=== PATIENT | male | born 1960 | race Two or more races ===

== ENCOUNTER 2019-08-15 18:55 | Emergency (ER) | payer OTHER ==
[~2019-08-15] VITALS: Ht 172.7 cm; Wt 65.8 kg
[~2019-08-15 18:55] MED LIST: "\\\"BP MED\\\""; LORA-259 PO; MIRT30TA PO
--- NOTE | 2019-08-15 19:25 | NUR ---
PT AAOX4. AMBULATORY WIH STEADY GAIT. C/O BEING DEPRESSED TODAY AND RELAPSED ON BIPOLAR DISORDER. States had 1 beer today. -SI, -HI. PLACED ON MONITOR AND PULSE OX. VSS. NO ACUTE DISTRESS NOTED. URINE COLLECTED AND SENT TO LAB. AWAITING DEBT MANAGEMENT COUNSELOR FOR LABS. WILL CONTINUE TO MONITOR.
[2019-08-15 19:46] LABS: APPEARANCE,URINE Clear (CLEAR); BILIRUBIN,URINE Negative (NEGATIVE); BLOOD, URINE Negative Ery/uL (NEGATIVE); COLOR,URINE Yellow (YELLOW); KETONES,URINE Negative (NEGATIVE); LEUKOCYTE ESTERASE ,URINE Trace (NEGATIVE); NITRITE, URINE Negative (NEGATIVE); PROTEIN,URINE Negative (NEGATIVE); UGLUCOSE Negative (NEGATIVE); UROBILINOGEN,URINE 0.2 EU/dL (0.2)
[2019-08-15 19:50] LABS: HEMOGLOBIN 13.7 g/dL (13.5-17.5); RED BLOOD CELL COUNT(AUTO) 4.17 MIL/uL (4.5-6.0); WHITE BLOOD COUNT (AUTO) 8.7 K/uL (4.3-11.0)
[2019-08-15 19:51] LABS: BASOPHILS # (AUTO) 0.1 /CMM (0.0-0.2); BASOPHILS % (AUTO) 1.5 % (0.0-2.0); EOSINOPHILS % (AUTO) 2.9 % (0.0-6.0); HEMATOCRIT 41 % (39-51); LYMPHOCYTES # (AUTO) 1.3 /CMM (0.8-4.8); MEAN CORPUSCULAR HGB CONC 34 g/dl (31.0-36.0); MEAN CORPUSCULAR VOLUME 98 fL (80-96); MONOCYTES # (AUTO) 0.5 /CMM (0.1-1.30); MONOCYTES % (AUTO) 6.3 % (2.0-12.0); NEUTROPHILS # (AUTO) 6.4 /CMM (1.8-8.9); NEUTROPHILS % (AUTO) 74.3 % (43.0-81.0); PLATELET COUNT (AUTO) 182 /CMM (150-450)
[2019-08-15 19:53] LABS: BACTERIA,URINE Few /HPF (None Seen); RBC,URINE NONE SEEN /HPF (0-2); SQUAMOUS EPITHELIAL CELL,UR Few /HPF (None Seen)
[2019-08-15 20:02] LABS: CALCIUM, SERUM 9.6 mg/dL (8.5-10.1); CARBON DIOXIDE 31 mmol/L (21-32); CHLORIDE 102 mmol/L (98-107); CREATININE 1.6 mg/dL (0.6-1.3); GLUCOSE 96 mg/dL (74-106); POTASSIUM 5.5 mmol/L (3.5-5.1); SODIUM SERUM 137 mmol/L (136-145); UREA NITROGEN, BLOOD 25 mg/dL (7-18)
[2019-08-15 20:11] LABS: ALANINE AMINOTRANSFERASE 67 U/L (12-78); ALBUMIN 3.8 g/dL (3.4-5.0); ALKALINE PHOSPHATASE 58 U/L (46-116); ASPARTATE AMINOTRANSFERASE 48 U/L (15-37); BILIRUBIN,DIRECT 0.1 mg/dL (0.0-0.2); BILIRUBIN,TOTAL 0.4 mg/dL (0.2-1.0); TOTAL PROTEIN, SERUM 7.1 g/dL (6.4-8.2)
[2019-08-15 20:12] LABS: SALICYLATE 1.9 mg/dL (2.8-20.0)
[2019-08-15 20:13] LABS: ACETAMINOPHEN < 2 ug/ml (10-30); ALCOHOL, BLOOD < 3 mg/dL (0-0)
[2019-08-15] MEDS ORDERED: IV NS 0.9% 1,000 ML BAG IV ONE (20:30)
--- NOTE | 2019-08-15 20:32 | NUR ---
EMT AT BEDSIDE FOR EKG
--- NOTE | 2019-08-15 21:02 | NUR ---
Patient is resting comfortably in bed. Easily aroused. VSS. Recieving Fluids.
[2019-08-15] MEDS ORDERED: SODIUM POLYSTYRENE SULFONATE 15 G/60 ML BOTTLE ONE ×2 (21:29→21:32)
[2019-08-15] MEDS ORDERED: SODIUM POLYSTYRENE SULFONATE 15 G/60 ML BOTTLE RC ONE ×2 (21:30→22:00)
[2019-08-15 23:05] LABS: CALCIUM, SERUM 8.6 mg/dL (8.5-10.1); CREATININE 1.5 mg/dL (0.6-1.3); POTASSIUM 4.2 mmol/L (3.5-5.1)
[2019-08-16] MEDS ORDERED: LORAZEPAM 1 MG TABLET PO ONE (00:30)
[2019-08-16] MEDS ORDERED: LORAZEPAM 1 MG TABLET ONE (00:32)
--- NOTE | 2019-08-16 00:40 | NUR ---
CLINICALS FAXED TO [facility] FOR VOLUNTARY ADMISSION.
--- NOTE | 2019-08-16 01:49 | NUR ---
SPOKE TO CRESENCIO FROM [facility] INTAKE PT ACCEPTED AT [facility] ACCEPTING MD: SANDIP PHONE # FOR REPORT PT WILL GO UNIT 1
--- NOTE | 2019-08-16 02:06 | NUR ---
[phone] ETA 45MIN.
--- NOTE | 2019-08-16 02:23 | NUR ---
UNIT 2 REPORT GIVEN TO EDIN COBIAN LONNY
[2019-08-16 02:27] VITALS: BP 127/81
--- NOTE | 2019-08-16 02:35 | NUR ---
REPORT GIVEN TO [facility] FOR LONNY
--- NOTE | 2019-08-16 02:35 | NUR ---
PT BEING TRASNSPORTED.
== END 2019-08-16 02:59 ==
LOC: ER 19:01
DX: R45.851 Suicidal ideations (principal); F31.9 Bipolar disorder, unspecified; N18.9 Chronic kidney disease, unspecified; E87.5 Hyperkalemia; Z60.2 Problems related to living alone; Z79.899 Other long term (current) drug therapy
CPT/HCPCS: 36415; 80048 ×2; 80076; 80305; 80307; 80329; 81001; 85025; 93005; 99285; G0480; J7030; 81000-TC

== ENCOUNTER 2020-01-20 21:09 | Emergency (ER) | payer OTHER ==
[~2020-01-20] VITALS: Ht 175.3 cm; Wt 63.5 kg
[2020-01-20] MEDS ORDERED: MAG HYDROX/AL HYDROX/SIMETH 30 ML UDC PO ONE (21:30)
[2020-01-20] MEDS ORDERED: LIDOCAINE VISCOUS 2% UD 15 ML UDC MM ONE (21:30)
--- NOTE | 2020-01-20 21:31 | NUR ---
PT AAOX4. BIBRA 878 FOR UNABLE TO SLEEP OR EAT X 2 WEEKS. PT STATES ABD PAIN TODAY AND FEELING NAUSEOUS. NO ACUTE DISTRESS NOTED. PA AT BEDSIDE FOR EVAL. AWAITING ORDERS.
[2020-01-20] MEDS ORDERED: LIDOCAINE VISCOUS 2% UD 15 ML UDC ONE (21:44)
[2020-01-20] MEDS ORDERED: ONDANSETRON HCL/PF 4 MG/2 ML VIAL ONE ×2 (21:44→23:46)
[2020-01-20] MEDS ORDERED: MAG HYDROX/AL HYDROX/SIMETH 30 ML UDC ONE (21:44)
[2020-01-20] MEDS ORDERED: MORPHINE SULFATE INJ 4 MG/ML DISP.SYRIN ONE (21:45)
[2020-01-20] MEDS ORDERED: ONDANSETRON HCL/PF 4 MG/2 ML VIAL IVP ONE (22:00)
[2020-01-20] MEDS ORDERED: IV NS 0.9% 1,000 ML BAG IV ONE (22:00)
[2020-01-20] MEDS ORDERED: MORPHINE SULFATE INJ 2 MG/ML DISP.SYRIN IV ONE (22:00)
[2020-01-20 22:07] LABS: BASOPHILS # (AUTO) 0.1 /CMM (0.0-0.2); BASOPHILS % (AUTO) 1.1 % (0.0-2.0); EOSINOPHILS % (AUTO) 0.2 % (0.0-6.0); HEMATOCRIT 40 % (39-51); HEMOGLOBIN 13.5 g/dL (13.5-17.5); LYMPHOCYTES # (AUTO) 0.7 /CMM (0.8-4.8); LYMPHOCYTES % (AUTO) 9.5 % (20.0-44.0); MEAN CORPUSCULAR HGB CONC 33 g/dl (31.0-36.0); MEAN CORPUSCULAR VOLUME 96 fL (80-96); MONOCYTES # (AUTO) 0.3 /CMM (0.1-1.30); MONOCYTES % (AUTO) 4.4 % (2.0-12.0); NEUTROPHILS # (AUTO) 5.9 /CMM (1.8-8.9); NEUTROPHILS % (AUTO) 84.8 % (43.0-81.0); PLATELET COUNT (AUTO) 266 /CMM (150-450); RED BLOOD CELL COUNT(AUTO) 4.19 MIL/uL (4.5-6.0)
--- NOTE | 2020-01-20 22:17 | NUR ---
US AT BEDSIDE
[2020-01-20 22:22] LABS: CALCIUM, SERUM 9.4 mg/dL (8.5-10.1); POTASSIUM 3.5 mmol/L (3.5-5.1)
[2020-01-20 22:24] LABS: SALICYLATE 2.9 mg/dL (2.8-20.0)
[2020-01-20 22:28] LABS: ALBUMIN 3.4 g/dL (3.4-5.0); BILIRUBIN,DIRECT 0.2 mg/dL (0.0-0.2); BILIRUBIN,TOTAL 0.6 mg/dL (0.2-1.0); TOTAL PROTEIN, SERUM 6.7 g/dL (6.4-8.2)
[2020-01-20] MEDS ORDERED: HYDROMORPHONE 1 MG/1 ML DISP.SYRIN IV ONE (22:30)
--- NOTE | 2020-01-20 22:31 | NUR ---
PA AT BEDSIDE SPEAKING TO PT
[2020-01-20] MEDS ORDERED: HYDROMORPHONE 1 MG/1 ML DISP.SYRIN ONE (22:33)
--- NOTE | 2020-01-20 22:40 | NUR ---
UNABLE TO URINATE/ PA AWARE.
--- NOTE | 2020-01-20 22:48 | NUR ---
URINE COLLECTED, SENT TO LAB
[2020-01-20] MEDS ORDERED: PANTOPRAZOLE 40 MG VIAL IV ONE (23:00)
[2020-01-20] MEDS ORDERED: PANTOPRAZOLE 40 MG VIAL ONE (23:01)
[2020-01-20 23:07] LABS: APPEARANCE,URINE CLEAR (CLEAR); BILIRUBIN,URINE NEGATIVE (NEGATIVE); BLOOD, URINE NEGATIVE Ery/uL (NEGATIVE); COLOR,URINE YELLOW (YELLOW); KETONES,URINE NEGATIVE (NEGATIVE); LEUKOCYTE ESTERASE ,URINE NEGATIVE (NEGATIVE); NITRITE, URINE NEGATIVE (NEGATIVE); PH,URINE 7.5 (5.0-8.0); PROTEIN,URINE NEGATIVE (NEGATIVE); UGLUCOSE NEGATIVE (NEGATIVE); UROBILINOGEN,URINE 0.2 EU/dL (0.2)
[2020-01-21] MEDS ORDERED: ONDANSETRON HCL/PF 4 MG/2 ML VIAL IV ONE
--- NOTE | 2020-01-21 00:13 | NUR ---
PT RESTING IN BED. STATED HE IS SEEING THINGS.
--- NOTE | 2020-01-21 00:59 | NUR ---
PT AMBULATED TO SINK.
[2020-01-21] MEDS ORDERED: CHLORDIAZEPOXIDE HCL 25 MG CAPSULE ONE (02:20)
[2020-01-21] MEDS ORDERED: CHLORDIAZEPOXIDE HCL 25 MG CAPSULE PO ONE (02:30)
--- NOTE | 2020-01-21 02:40 | NUR ---
IV removed. Catheter intact and site benign. Pressure and 4x4 applied to site. No bleeding noted. Patient discharged to home in stable condition. Written and verbal after care instructions given. Patient verbalizes understanding of instruction and RX. Pt ambualted with steady gait. vss.
[2020-01-21 03:08] VITALS: BP 121/71
== END 2020-01-21 03:09 | disposition home or self-care (01) ==
LOC: ER 21:11
DX: K29.20 Alcoholic gastritis without bleeding (principal); F10.10 Alcohol abuse, uncomplicated; F32.9 Major depressive disorder, single episode, unspecified; R45.851 Suicidal ideations; E86.0 Dehydration; Y90.8 Blood alcohol level of 240 mg/100 ml or more; Z60.2 Problems related to living alone; Z79.899 Other long term (current) drug therapy
CPT/HCPCS: 36415; 71045; 76705; 80048; 80076; 80305; 80307; 80329; 81001; 83690; 85025; 85730; 96361; 96374; 96375; 96376; 99285; C9113; G0480; J1170; J2270; J2405 ×2; J7030; 81000-TC

== ENCOUNTER 2021-01-20 23:20 | Emergency (ER) | payer OTHER ==
[~2021-01-20] VITALS: Ht 175.3 cm; Wt 77.1 kg
[~2021-01-20 23:20] MED LIST changes: +MIRT-119 PO; -MIRT30TA PO
[2021-01-20] MEDS ORDERED: ONDANSETRON HCL/PF 4 MG/2 ML VIAL IVP ONE (23:30)
--- NOTE | 2021-01-20 23:30 | NUR ---
DORA 37 FROM HIS [facility]S HOUSE FOR C/O R SIDED ABD PAIN AND NAUSEA AND VOMITING X 1 DAY. DENIED DIARRHEA. REPORTED LAST BM "WHILE AGO". PT ADMITTED ON DRINKING ALCOHOL. PT WAS PLACED IN BED 11 ER , ON MONITOR. VSS. WILL CONT TO MONITOR
[2021-01-20] MEDS ORDERED: ONDANSETRON HCL/PF 4 MG/2 ML VIAL ONE (23:31)
[2021-01-20 23:44] LABS: BASOPHILS # (AUTO) 0.2 K/uL (0.0-0.2); BASOPHILS % (AUTO) 1.1 % (0.0-2.0); HEMATOCRIT 46 % (39-51); HEMOGLOBIN 15.7 g/dL (13.5-17.5); LYMPHOCYTES # (AUTO) 0.9 K/uL (0.8-4.8); LYMPHOCYTES % (AUTO) 6.4 % (20.0-44.0); MEAN CORPUSCULAR HGB CONC 34 g/dl (31.0-36.0); MEAN CORPUSCULAR VOLUME 97 fL (80-96); MONOCYTES # (AUTO) 0.2 K/uL (0.1-1.30); MONOCYTES % (AUTO) 1.3 % (2.0-12.0); NEUTROPHILS # (AUTO) 12.4 K/uL (1.8-8.9); NEUTROPHILS % (AUTO) 91.2 % (43.0-81.0); PLATELET COUNT (AUTO) 319 K/uL (150-450); RED BLOOD CELL COUNT(AUTO) 4.79 MIL/uL (4.5-6.0); WHITE BLOOD COUNT (AUTO) 13.6 K/uL (4.3-11.0)
[2021-01-20] MEDS ORDERED: IOHEXOL-300 100 ML VIAL IV ONE (23:49)
[2021-01-20] MEDS ORDERED: CT SWABBABLE VALVE TRANS SET 1 EA INFUS.SET MC ONE (23:49)
[2021-01-20] MEDS ORDERED: IV NS 0.9% 250 ML IV ONE (23:50)
--- NOTE | 2021-01-20 23:52 | NUR ---
BLOOD OBTAINED AND SENT TO LAB
[2021-01-21 00:28] LABS: CALCIUM, SERUM 8.8 mg/dL (8.5-10.1); CREATININE 1.4 mg/dL (0.6-1.3); POTASSIUM 3.7 mmol/L (3.5-5.1)
[2021-01-21 00:35] LABS: ALBUMIN 3.9 g/dL (3.4-5.0); BILIRUBIN,DIRECT 0.2 mg/dL (0.0-0.2); BILIRUBIN,TOTAL 0.5 mg/dL (0.2-1.0); TOTAL PROTEIN, SERUM 7.5 g/dL (6.4-8.2)
--- NOTE | 2021-01-21 00:36 | NUR ---
patient taken to CT via park
--- NOTE | 2021-01-21 00:38 | NUR ---
PT TRANSPORTED TO RADIOLOGY FOR CT ABD/PELVIS WITH IV CONTRAST.
[2021-01-21] MEDS ORDERED: IV NS 0.9% 1,000 ML IV ONE (01:00)
[2021-01-21] MEDS ORDERED: ONDA4TAB11 PO (01:37)
[2021-01-21] MEDS ORDERED: OMEP40CA21 PO (01:37)
--- NOTE | 2021-01-21 02:03 | NUR ---
Patient discharged to home in stable condition. Written and verbal after care instructions given. Patient verbalizes understanding of instruction.
[2021-01-21 02:30] VITALS: BP 134/79
[2021-01-21] MEDS ORDERED: ALPR0.255 PO (17:09)
== END 2021-01-21 02:04 | disposition home or self-care (01) ==
LOC: ER 23:21
DX: K20.90 Esophagitis, unspecified without bleeding (principal); F10.10 Alcohol abuse, uncomplicated; F32.9 Major depressive disorder, single episode, unspecified; F17.200 Nicotine dependence, unspecified, uncomplicated; Z60.2 Problems related to living alone; Z79.899 Other long term (current) drug therapy; Y90.9 Presence of alcohol in blood, level not specified
CPT/HCPCS: 36415; 74177; 80048; 80076; 83690; 85025; 96361; 96374; 99285; J2405; J7050; Q9967; J7030

== ENCOUNTER 2021-01-21 16:13 | Inpatient (IN) | payer OTHER ==
[~2021-01-21] VITALS: Ht 172.7 cm; Wt 62.2 kg
[~2021-01-21 16:13] MED LIST changes: +OMEP40CA21 PO; +ONDA4TAB11 PO
--- NOTE | 2021-01-21 16:13 | NUR ---
PT [id number], C/O WORSENING ABDOMINAL PAIN, +N/V. PT IS AAOX4, NOT IN RESPIRATORY DISTRESS, HOOKED TO MORTGAGE FUNDER, KEPT RESTED AND COMFORTABLE. WILL CONTINUE TO MONITOR.
[2021-01-21] MEDS ORDERED: IV NS 0.9% 1,000 ML BAG IV ONE (16:30)
[2021-01-21] MEDS ORDERED: PANTOPRAZOLE 40 MG VIAL IV ONE (16:30)
[2021-01-21] MEDS ORDERED: ONDANSETRON HCL/PF 4 MG/2 ML VIAL IVP ONE (16:30)
[2021-01-21] MEDS ORDERED: MORPHINE SULFATE INJ 2 MG/ML DISP.SYRIN IV ONE (16:30)
--- NOTE | 2021-01-21 16:30 | NUR ---
SEEN AND EXAMINED BY .
[2021-01-21] MEDS ORDERED: ONDANSETRON HCL/PF 4 MG/2 ML VIAL ONE (16:39)
[2021-01-21] MEDS ORDERED: PANTOPRAZOLE 40 MG VIAL ONE (16:39)
[2021-01-21] MEDS ORDERED: MORPHINE SULFATE INJ 4 MG/ML DISP.SYRIN ONE (16:39)
--- NOTE | 2021-01-21 16:40 | NUR ---
IV LINE ESTABLSIHED BLOOD DRAWN AND SENT TO LAB.
[2021-01-21 16:52] LABS: BASOPHILS % (AUTO) 0.3 % (0.0-2.0); HEMATOCRIT 38 % (39-51); LYMPHOCYTES # (AUTO) 0.6 K/uL (0.8-4.8); LYMPHOCYTES % (AUTO) 5.3 % (20.0-44.0); MEAN CORPUSCULAR HGB CONC 34 g/dl (31.0-36.0); MEAN CORPUSCULAR VOLUME 95 fL (80-96); MONOCYTES # (AUTO) 0.9 K/uL (0.1-1.30); MONOCYTES % (AUTO) 7.9 % (2.0-12.0); NEUTROPHILS % (AUTO) 86.5 % (43.0-81.0); PLATELET COUNT (AUTO) 257 K/uL (150-450); WHITE BLOOD COUNT (AUTO) 11.6 K/uL (4.3-11.0)
[2021-01-21 17:03] LABS: CALCIUM, SERUM 8.5 mg/dL (8.5-10.1); CREATININE 1.4 mg/dL (0.6-1.3)
[2021-01-21 17:08] LABS: ALBUMIN 3.3 g/dL (3.4-5.0); BILIRUBIN,DIRECT 0.2 mg/dL (0.0-0.2); BILIRUBIN,TOTAL 0.7 mg/dL (0.2-1.0); TOTAL PROTEIN, SERUM 6.6 g/dL (6.4-8.2)
[2021-01-21] MEDS ORDERED: ALPR0.255 PO (17:09)
[2021-01-21] MEDS ORDERED: POTASSIUM CHLORIDE 20 MEQ TAB.PRT.SR PO ONE ×4 (17:30→19:01)
--- NOTE | 2021-01-21 17:43 | NUR ---
URINE SPECIMEN COLLECTED AND SENT TO LAB.
[2021-01-21 17:47] LABS: BILIRUBIN,URINE Negative (NEGATIVE); COLOR,URINE YELLOW (YELLOW); LEUKOCYTE ESTERASE ,URINE Negative (NEGATIVE); NITRITE, URINE Negative (NEGATIVE); PROTEIN,URINE 100 mg/dl (NEGATIVE); UGLUCOSE 100 MG/DL mg/dL (NEGATIVE); UROBILINOGEN,URINE 0.2 EU/dL (0.2)
[2021-01-21 17:49] LABS: PH,URINE >9.0 (5.0-8.0)
[2021-01-21 18:02] LABS: BACTERIA,URINE None seen /HPF (None Seen); RBC,URINE 0-2 /HPF (0-2); SQUAMOUS EPITHELIAL CELL,UR Few /HPF (None Seen); WBC,URINE 0-2 /HPF (0-3)
--- NOTE | 2021-01-21 18:32 | NUR ---
BAHENA CHAPERONE AT BEDSIDE FOR EVAL.
--- NOTE | 2021-01-21 18:36 | NUR ---
CALLED NURSING SUP FOR M/S BED.
[2021-01-21] MEDS ORDERED: TRAMADOL HCL 50 MG TABLET PO ONE (19:00)
[2021-01-21] MEDS ORDERED: LORAZEPAM INJ 2 MG/ML VIAL IV ONE (19:00)
[2021-01-21] MEDS ORDERED: TRAMADOL HCL 50 MG TABLET ONE (19:02)
[2021-01-21] MEDS ORDERED: LORAZEPAM INJ 2 MG/ML VIAL ONE (19:02)
--- NOTE | 2021-01-21 19:05 | NUR ---
Rec'd report from MANGO Holland for mango
--- NOTE | 2021-01-21 19:59 | NUR ---
per 3 west charger operator, she will have nurse taking the pt call me back, once assigned
--- NOTE | 2021-01-21 20:19 | NUR ---
gave report to MANGO Bello for mango
[2021-01-21] MEDS ORDERED: ONDANSETRON HCL/PF 4 MG/2 ML VIAL IVP PRN (20:30)
[2021-01-21] MEDS ORDERED: Z GUARD REMEDY 2 OZ OINT TP PRN (20:30)
[2021-01-21] MEDS ORDERED: ZOLPIDEM TARTRATE 5 MG TABLET PO PRN (20:30)
[2021-01-21] MEDS ORDERED: ACETAMINOPHEN 325 MG TABLET PO PRN (20:30)
[2021-01-21] MEDS ORDERED: MAG HYDROX/AL HYDROX/SIMETH 30 ML UDC PO PRN (20:30)
[2021-01-21] MEDS ORDERED: IV NS 0.9% 1,000 ML IV ONE (20:30)
[2021-01-21] MEDS ORDERED: MORPHINE SULFATE INJ 2 MG/ML DISP.SYRIN IV PRN (20:30)
--- NOTE | 2021-01-21 20:30 | NUR ---
MS/RN ADMITTING NOTE RECEIVED REPORT FROM MANAGER OF TRAINING AND DEVELOPMENT PRISCILA. PATIENT ARRIVED TO UNIT VIA GURNEY AND 2 STAFF MEMBERS. PATIENT BEING ADMITTING FOR INTRACTABLE ABDOMINAL PAIN. PATIENT IS ALERT AND ORIENTED X 4. ABLE TO MAKE NEEDS KNOWN. DENIES PAIN AT THIS TIME. CONTINUES ON ROOM AIR WITH NO S/SX OF RESPIRATORY DISTRESS NOTED. IV ACCESS TO LEFT AC #18G INTACT AND PATENT. DENIES NAUSEA AT THIS TIME. CONTINUES ON CLEAR LIQUID WITH PATIENT TOLERATING WATER WELL AT THIS TIME. PATIENT ORIENTED TO ROOM, CALL LIGHT AND UNIT. CALL LIGHT WITHIN REACH. ASPIRATION, FALL AND SAFETY PRECAUTIONS MAINTAINED. WILL CONTINUE TO MONITOR.
[2021-01-21 20:54] VITALS: BP 128/66
[2021-01-21] MEDS: MIRTAZAPINE 15 MG TABLET PO SCH (21:04)
[2021-01-21] MEDS: ENOXAPARIN SODIUM 40 MG/0.4 ML DISP.SYRIN SQ SCH (21:06)
[2021-01-21] MEDS ORDERED: HYDROCODONE/APAP 5/325MG TABLET PO PRN (21:30)
[2021-01-21] MEDS: IV 1/2NS 1000 ML 1,000 ML IV PRN (21:54)
[2021-01-22] MEDS: LORAZEPAM INJ 2 MG/ML VIAL IV PRN ×2 (05:25→18:33)
[2021-01-22] MEDS: IV 1/2NS 1000 ML 1,000 ML IV PRN (06:28)
[2021-01-22 06:33] LABS: CALCIUM, SERUM 7.6 mg/dL (8.5-10.1); CREATININE 1.5 mg/dL (0.6-1.3); MAGNESIUM 2.2 mg/dL (1.8-2.4); PHOSPHORUS 1.6 mg/dL (2.5-4.9); POTASSIUM 3.4 mmol/L (3.5-5.1)
--- NOTE | 2021-01-22 06:50 | NUR ---
MS/RN CLOSING NOTE PATIENT CURRENTLY SLEEPING IN BED. ALERT AND ORIENTED X 4. ABLE TO MAKE NEEDS KNOWN. DENIES PAIN AT THIS TIME. IV ACCESS TO LEFT AC #18G INTACT AND PATENT. CONTINUES ON IVF 1/2 NS @ 75ML/HR. CONTINUES ON CLEAR LIQUID DIET WITH NO S/SX OF NAUSEA OR VOMITING THIS SHIFT. CALL LIGHT WITHIN REACH. ASPIRATION, FALL AND SAFETY PRECAUTIONS MAINTAINED. WILL ENDORSE PLAN OF CARE TO ONCOMING SHIFT.
--- NOTE | 2021-01-22 07:55 | NUR ---
MS/RN OPENING NOTE RECEIVED PATIENT IN BED. ALERT AND ORIENTED X 4. ABLE TO MAKE NEEDS KNOWN. DENIES PAIN AT THIS TIME. IV ACCESS TO LEFT AC #18G INTACT AND PATENT. CONTINUES ON IVF 1/2 NS @ 75ML/HR. CONTINUES ON CLEAR LIQUID DIET WITH NO S/SX OF NAUSEA OR VOMITING THIS SHIFT. CALL LIGHT WITHIN REACH. ASPIRATION, FALL AND SAFETY PRECAUTIONS MAINTAINED. WILL CONTINUE TO MONITOR PATIENT.
[2021-01-22 08:00] VITALS: BP 123/82
[2021-01-22 08:11] LABS: BASOPHILS # (AUTO) 0.1 K/uL (0.0-0.2); BASOPHILS % (AUTO) 0.5 % (0.0-2.0); EOSINOPHILS % (AUTO) 0.3 % (0.0-6.0); HEMATOCRIT 38 % (39-51); HEMOGLOBIN 12.7 g/dL (13.5-17.5); LYMPHOCYTES % (AUTO) 8.6 % (20.0-44.0); MEAN CORPUSCULAR HGB CONC 34 g/dl (31.0-36.0); MEAN CORPUSCULAR VOLUME 98 fL (80-96); MONOCYTES # (AUTO) 0.6 K/uL (0.1-1.30); MONOCYTES % (AUTO) 5.1 % (2.0-12.0); NEUTROPHILS # (AUTO) 10.4 K/uL (1.8-8.9); NEUTROPHILS % (AUTO) 85.5 % (43.0-81.0); PLATELET COUNT (AUTO) 212 K/uL (150-450); RED BLOOD CELL COUNT(AUTO) 3.85 MIL/uL (4.5-6.0); WHITE BLOOD COUNT (AUTO) 12.2 K/uL (4.3-11.0)
[2021-01-22] MEDS: SUCRALFATE 1 G/10 ML UDC GT SCH ×3 (08:49→17:51)
[2021-01-22] MEDS: NICOTINE PATCH (7MG) 7 MG PATCH.TD24 TD SCH (08:49)
[2021-01-22] MEDS: PANTOPRAZOLE 40 MG VIAL IV SCH (08:49)
[2021-01-22] MEDS ORDERED: POTASSIUM CHLORIDE 20 MEQ TAB.PRT.SR PO SCH (09:30)
[2021-01-22] MEDS ORDERED: K PHOS NEUTRAL 250 MG TABLET PO ONE (10:30)
[2021-01-22] MEDS ORDERED: POTASSIUM CHLORIDE 20 MEQ TAB.PRT.SR PO ONE (10:38)
[2021-01-22] MEDS: FOLIC ACID 1 MG TABLET PO SCH (12:53)
[2021-01-22] MEDS ORDERED: Thiamine 100 MG in IV D5W 50 ML IV SCH (13:00)
[2021-01-22 16:00] VITALS: BP 116/74
--- NOTE | 2021-01-22 18:56 | NUR ---
MS/RN CLOSING NOTE PATIENT IN BED. ALERT AND ORIENTED X 4. ABLE TO MAKE NEEDS KNOWN. DENIES PAIN AT THIS TIME. IV ACCESS TO LEFT AC #18G INTACT AND PATENT. CONTINUES ON IVF 1/2 NS @ 75ML/HR. CONTINUES ON CLEAR LIQUID DIET WITH NO S/SX OF NAUSEA OR VOMITING THIS SHIFT. CALL LIGHT WITHIN REACH. ASPIRATION, FALL AND SAFETY PRECAUTIONS MAINTAINED. WILL ENDORSE TO THE NEXT SHIFT FOR LONNY.
--- NOTE | 2021-01-22 19:15 | NUR ---
MS RN OPENING NOTES RECEIVED PT RESTING IN BED, A/O X4, ABLE TO VERBALIZE ALL NEEDS. HE DENIES ANY PAIN OR DISCOMFORT AT THIS TIME. RESPIRATIONS EVEN AND UNLABORED, DENIES SOB. IV SITE L-AC #18G INTACT AND PATENT. PT IN NO ACUTE DISTRESS. WILL CONTINUE TO MONITOR.
[2021-01-22 19:44] VITALS: BP 127/76
[2021-01-22] MEDS ORDERED: Sodium Phosphate 30 MMOL in IV NS 0.9% 250 ML IV SCH (20:00)
[2021-01-22] MEDS: ENOXAPARIN SODIUM 40 MG/0.4 ML DISP.SYRIN SQ SCH (20:10)
[2021-01-22] MEDS: MIRTAZAPINE 15 MG TABLET PO SCH (21:05)
[2021-01-23] MEDS: IV 1/2NS 1000 ML 1,000 ML IV PRN (03:45)
--- NOTE | 2021-01-23 07:19 | NUR ---
MS/RN OPENING NOTE RECEIVED PATIENT IN BED. ALERT AND ORIENTED X 4. ABLE TO MAKE NEEDS KNOWN. PATIENT IS BREATHING EVENLY AND NONLABORED ON ROOM AIR. DENIES PAIN AT THIS TIME. IV ACCESS TO LEFT AC #18G INTACT AND PATENT RUNNING 1/2 NS @ 75ML/HR. CONTINUES ON FULL LIQUID DIET WITH NO S/SX OF NAUSEA OR VOMITING THIS SHIFT. SAFETY MEASURES IN PLACE. CALL LIGHT WITHIN REACH. ASPIRATION, FALL AND SAFETY PRECAUTIONS MAINTAINED. WILL CONTINUE TO MONITOR
--- NOTE | 2021-01-23 07:24 | NUR ---
RN CLOSING NOTES PT RESTING IN BED, EASILY AWAKENS TO STIMULI. A/O X4, ABLE TO VERBALIZE NEEDS. NO SOB. NO C/O ABD PAIN DURING THE SHIFT. IV SITE ON L-AC INTACT/PATENT, INFUSING 0.45% NS @75 ML/HR. PT IN NO ACUTE DISTRESS. ENDORSED TO NEXT SHIFT NURSE.
[2021-01-23 07:29] LABS: CALCIUM, SERUM 7.6 mg/dL (8.5-10.1); CREATININE 1.1 mg/dL (0.6-1.3); POTASSIUM 3.4 mmol/L (3.5-5.1)
[2021-01-23 08:00] VITALS: BP 137/79
[2021-01-23] MEDS: SUCRALFATE 1 G/10 ML UDC GT SCH ×2 (08:05→11:51)
[2021-01-23] MEDS: PANTOPRAZOLE 40 MG VIAL IV SCH (08:05)
[2021-01-23] MEDS: FOLIC ACID 1 MG TABLET PO SCH (08:05)
[2021-01-23] MEDS: NICOTINE PATCH (7MG) 7 MG PATCH.TD24 TD SCH (08:05)
[2021-01-23] MEDS: LORAZEPAM INJ 2 MG/ML VIAL IV PRN (08:08)
[2021-01-23] MEDS ORDERED: THIAMINE HCL 100 MG TABLET PO SCH (09:00)
[2021-01-23] MEDS ORDERED: POTASSIUM CHLORIDE 20 MEQ TAB.PRT.SR PO ONE (09:00)
[2021-01-23] MEDS ORDERED: POTASSIUM CHLORIDE 20 MEQ TAB.PRT.SR PO SCH (10:00)
--- NOTE | 2021-01-23 12:29 | NUR ---
ELECTRICAL CONTROLS ASSEMBLER NOTE RECEIVED DISCHARGE ORDER. PATIENT IS A/OX4 SELF RESPONSIBLE. PATIENT IS BREATHING EVENLY AND NONLABORED ON ROOM AIR. PATIENT IS NOT IN ANY ACUTE DISTRESS. PATIENT TOLERATED LUNCH NO SIGNS OF NAUSEA NOTED. PATIENT WAS GIVEN DISCHARGE INSTRUCTIONS BOTH VERBALLY AND IN WRITTEN FORM. PATIENT VERBALIZED UNDERSTANDING. PATIENT'S IV ACCESS WAS REMOVED PRESSURE DRESSING APPLIED. PATIENT'S ID BAND REMOVED. PATIENT LEFT IN STABLE CONDITION AMBULATING.
[2021-01-24] MEDS ORDERED: PANTOPRAZOLE 40 MG TABLET.DR PO SCH (07:30)
== END 2021-01-23 12:30 | disposition home or self-care (01) | DRG 241 ==
LOC: ER 16:17 → MED 20:03
PROVIDERS: ADMIT Nurse Practitioner Family; ATTEND Internal Medicine
DX: K29.20 Alcoholic gastritis without bleeding (principal); N17.0 Acute kidney failure with tubular necrosis; E44.1 Mild protein-calorie malnutrition; K20.90 Esophagitis, unspecified without bleeding; Z20.822 Contact with and (suspected) exposure to COVID-19; F41.9 Anxiety disorder, unspecified; E86.0 Dehydration; D64.9 Anemia, unspecified; D72.829 Elevated white blood cell count, unspecified; E87.6 Hypokalemia; F17.210 Nicotine dependence, cigarettes, uncomplicated; F32.9 Major depressive disorder, single episode, unspecified; E88.09 Other disorders of plasma-protein metabolism, not elsewhere classified; R73.9 Hyperglycemia, unspecified; Z68.1 Body mass index [BMI] 19.9 or less, adult; F10.20 Alcohol dependence, uncomplicated; Y90.0 Blood alcohol level of less than 20 mg/100 ml; K40.90 Unilateral inguinal hernia, without obstruction or gangrene, not specified as recurrent; K29.80 Duodenitis without bleeding; K42.9 Umbilical hernia without obstruction or gangrene; K57.30 Diverticulosis of large intestine without perforation or abscess without bleeding; I70.90 Unspecified atherosclerosis; E83.42 Hypomagnesemia
CPT/HCPCS: 36415; 71045-TC; 80048-TC; 80061-TC; 80076-TC; 81001; 83540-TC; 83690-TC; 83735-TC; 84100-TC; 85025-TC; 87081-TC; A9563; C9113; C9803; G0378; G0480; J1650; J2060; J2270; J2405; J3411; J3490; J7030; J7050; J7060

== ENCOUNTER 2024-06-09 19:54 | Emergency (ER) | payer MEDICARE, OTHER ==
[~2024-06-09] VITALS: Ht 180.3 cm; Wt 86.2 kg
[~2024-06-09 19:54] MED LIST changes: -"\\\"BP MED\\\""; +ALPR0.255 PO; -LORA-259 PO; -OMEP40CA21 PO; -ONDA4TAB11 PO
[2024-06-10] MEDS ORDERED: ONDANSETRON HCL/PF 4 MG/2 ML VIAL ONE (01:32)
[2024-06-10] MEDS ORDERED: PANTOPRAZOLE 40 MG VIAL ONE (01:32)
[2024-06-10] MEDS: IV NS 0.9% 1,000 ML IV ONE (01:39)
[2024-06-10] MEDS: PANTOPRAZOLE 40 MG VIAL IV ONE (01:40)
[2024-06-10] MEDS: ONDANSETRON HCL/PF - ER 4 MG/2 ML VIAL IV ONE (01:40)
[2024-06-10 01:41] LABS: BASOPHILS # (AUTO) 0.1 K/uL (0.0-0.2); BASOPHILS % (AUTO) 1.5 % (0.0-2.0); EOSINOPHILS % (AUTO) 0.1 % (0.0-6.0); HEMATOCRIT 39 % (39-51); HEMOGLOBIN 13.5 g/dL (13.5-17.5); LYMPHOCYTES # (AUTO) 0.5 K/uL (0.8-4.8); LYMPHOCYTES % (AUTO) 7.1 % (20.0-44.0); MEAN CORPUSCULAR HEMOGLOBIN 34 PG (26.0-33.0); MEAN CORPUSCULAR HGB CONC 34 g/dl (31.0-36.0); MEAN CORPUSCULAR VOLUME 98 fL (80-96); MONOCYTES # (AUTO) 0.4 K/uL (0.1-1.30); NEUTROPHILS # (AUTO) 6.2 K/uL (1.8-8.9); NEUTROPHILS % (AUTO) 86.3 % (43.0-81.0); PLATELET COUNT (AUTO) 241 K/uL (150-450); RED BLOOD CELL COUNT(AUTO) 4.01 MIL/uL (4.5-6.0); RED CELL DISTRIBUTION WIDTH 14.7 % (11.5-15.0); WHITE BLOOD COUNT (AUTO) 7.2 K/uL (4.3-11.0)
[2024-06-10 01:48] LABS: CALCIUM, SERUM 8.8 mg/dL (8.5-10.1); CREATININE 1.3 mg/dL (0.6-1.3); POTASSIUM 4.1 mmol/L (3.5-5.1)
[2024-06-10 01:54] LABS: ALBUMIN 3.8 g/dL (3.4-5.0); BILIRUBIN,TOTAL 0.7 mg/dL (0.2-1.0); TOTAL PROTEIN, SERUM 7.4 g/dL (6.4-8.2)
[2024-06-10 03:42] LABS: APPEARANCE,URINE CLEAR (CLEAR); BILIRUBIN,URINE NEGATIVE (NEGATIVE); BLOOD, URINE NEGATIVE Ery/uL (NEGATIVE); COLOR,URINE YELLOW (YELLOW); KETONES,URINE 3+ mg/dL (NEGATIVE); LEUKOCYTE ESTERASE ,URINE NEGATIVE (NEGATIVE); NITRITE, URINE NEGATIVE (NEGATIVE); PROTEIN,URINE TRACE mg/dl (NEGATIVE); UGLUCOSE NEGATIVE (NEGATIVE); UROBILINOGEN,URINE 0.2 EU/dL (0.2)
[2024-06-10 03:48] LABS: AMPHETAMINE, URINE NEGATIVE (NEGATIVE); BARBITURATE, URINE NEGATIVE (NEGATIVE); COCCAINE, URINE NEGATIVE (NEGATIVE); OPIATE, URINE NEGATIVE (NEGATIVE); PHENCYCLIDINE SCREEN,URINE NEGATIVE (NEGATIVE)
[2024-06-10 03:49] LABS: BENZODIAZEPINE, URINE POSITIVE (NEGATIVE); CANNABINOID, URINE POSITIVE (NEGATIVE)
[2024-06-10 04:11] VITALS: BP 147/88; TEMP 98.6; O2SAT 99
[2024-06-10 04:42] LABS: ADD URINE CULTURE NO; BACTERIA,URINE None seen /HPF (None Seen); MUCUS,URINE Few /LPF (None Seen); RBC,URINE NONE SEEN /HPF (0-2); SQUAMOUS EPITHELIAL CELL,UR None Seen /HPF (None Seen); WBC,URINE NONE SEEN /HPF (0-3)
== END 2024-06-10 04:12 | disposition home or self-care (01) ==
LOC: ER 19:56
DX: F10.10 Alcohol abuse, uncomplicated (principal); K29.70 Gastritis, unspecified, without bleeding; F17.200 Nicotine dependence, unspecified, uncomplicated; F32.A Depression, unspecified; Y90.1 Blood alcohol level of 20-39 mg/100 ml
CPT/HCPCS: 99285; 96374; 96361; 96375; 93005; 71045; 74176; 85025; 83690; 81001; 36415; 80053; 84484; 80320; 80307; J2405 ×2; J7030; J2470; G0480